=== PATIENT | female | born 1955 | race Caucasian/White ===

== ENCOUNTER → 2017-06-09 | Outpatient (CLI) | payer BC ==
[~2017-06-09] VITALS: Ht 177.8 cm; Wt 113.4 kg
[~2017-06-09] MED LIST: ADULT LOW DOSE81 M1 PO; AMARYL2 MG PO; AMARYL4 MG PO; AMBIEN CR12.5 MG PO; AMBIEN CR6.25 MG PO; ANALGESIC325 M1 PO; ASPIR-TRIN325 M1 PO; ASPIRIN325 MG PO; Ambien PO; CELEBREX200 MG PO; CENTRUM COMPLE1 EACH PO; EFFIENT10 MG PO; ERGOCALCIF50000 UNIT PO; Effient PO; JANUVIA100 MG PO; LEVOTHYROXINE125 MCG PO; LEXAPRO20 MG PO; LIVALO; LIVALO1 MG PO; LOPRESSOR25 MG PO; LUNESTA3 MG PO; Levothroid,Synthroid PO; Lexapro PO; METOPROLOL; METOPROLOL TART25 MG PO; MULTI VITAMIN1 EACH PO; MULTIVITAMIN1 EAC2 PO; NAPROSYN500 MG PO; NITROSTAT,NITR0.4 M1 SL; NITROSTAT0.4 MG SL; PREMARIN0.625 MG PO; PRILOSEC20 MG PO; PRILOSEC40 MG PO; PriLOSEC PO; REGLAN10 MG PO; SEROQUEL XR300 MG PO; SYNTHROID125 MCG PO; SYNTHROID137 MCG PO; SYNTHROID150 MCG PO; TRIPLE OMEGA C400 MG PO; VICODIN 5-3001 EACH PO; VICTOZA 2-0.6 MG/0.1 SC; VICTOZA0.6 MG/0.1 SC; VYVANCE; VYVANSE40 MG PO; VYVANSE50 MG PO; Zocor PO; [UNRECOGNIZED DRUG - OTHER]
[2017-06-09 14:20] LABS: POINT-OF-CARE METER ID UU14107333
== END | disposition home or self-care (01) ==
LOC: AMB 13:30
PROVIDERS: Surgery
PROC: 0DJ08ZZ Inspection of Upper Intestinal Tract, Via Natural or Artificial Opening Endoscopic (ICD-10-PCS; principal; 2017-06-09)
DX: R10.13 Epigastric pain (principal); Z98.84 Bariatric surgery status; K21.9 Gastro-esophageal reflux disease without esophagitis; I25.10 Atherosclerotic heart disease of native coronary artery without angina pectoris; Z95.5 Presence of coronary angioplasty implant and graft; I25.2 Old myocardial infarction; E11.9 Type 2 diabetes mellitus without complications; I10 Essential (primary) hypertension; Z88.8 Allergy status to other drugs, medicaments and biological substances
CPT/HCPCS: 82948; J2250